=== PATIENT | female | born 1980 | race Caucasian/White ===

== ENCOUNTER → 2020-10-20 08:24 | Outpatient (CLI) | payer BC, SELFPAY ==
[2020-10-20 12:44] LABS: Coronavirus 19 IgG Antibody Negative (Negative); Coronavirus 19 IgM Antibody Negative (Negative)
== END ==
PROVIDERS: Visit Provider Internal Medicine Gastroenterology
DX: Z01.818 Encounter for other preprocedural examination (principal); Z13.810 Encounter for screening for upper gastrointestinal disorder; R13.10 Dysphagia, unspecified
CPT/HCPCS: 36415; 86328

== ENCOUNTER 2020-10-22 07:24 | Day surgery (SDC) | payer BC, SELFPAY ==
[2020-10-16 13:09] VITALS: BMI 25.8
[2020-10-22] VITALS (7 sets, daily range): BP systolic 98–104; BP diastolic 60–71; PULSE 68–91; RESP 16–18; TEMP 36.4–36.8; O2SAT 96–100
--- NOTE | 2020-10-22 08:32 | HMH.ANESCL ---
[facility] Anesthesia Checklist - Patient Identification Patient Identification: Arm Band - Structural Data Admitted From: Home Planned Operative Procedure/s: egd Consent for Planned Operative Procedure(s) Verified: Yes Verified Documents: Surgical Consent, History and Physical - NPO Status Verified Time NPO: 00:00 - Additional verifications Anesthesia Reactions: No Hx Blood Transfusions: No Blood Transfusion Reaction: No - Airway Assessment C-Spine Mobility Assessed: Yes (mp2) TMJ Mobility Assessed: Yes Dentition: Good Dentition - Neurological Assessment Level of Consciousness: Awake, Alert - Anesthesia Plan Anesthesia Risk discussed: Yes Anesthesia Plan: Verified ASA Class: II Anesthesia Type: MAC [facility] History I have reviewed the patient's past medical history: Yes Medical History: Reports:: Gastroesophageal Reflux Disease(GERD), Migraine Denies:: Cancer, Diabetes Mellitus Type 1, Diabetes Mellitus Type 2, Internal Pacemaker, Lung Disease, MRSA, Seizures *Have you ever received a pneumonia vaccine?: No *Have you received a flu vaccine this season?: Yes Other Medical History: Denies: Blood Transfusion Reaction Anesthesia experience/problems:: nac Other Surgeries: Yes: Colonoscopy, , Dilation and Curettage, Tubal Ligation. No: Pacemaker Amputation: No Fractures: Yes (LT FOOT) - *Social History Last grade of school completed: High school graduate Smoking Status: Never smoker Alcohol Intake: never Substance Use Type: denies use *Occupational Status:: employed Housing: house Household Members: spouse *Travel in the last 8 weeks: None Family Hx:: Cancer, Heart Attack
--- NOTE | 2020-10-22 08:41 | HMH.PROC ---
[facility] Procedure Note Procedure Note:: Upper Endoscopy Procedure Report: Esophagogastroduodenoscopy with cold biopsies and TTS balloon dilation Endoscopost: Nabeel Scruggs II, MD Referring Physician: Millie Arreloa DO Date of Procedure: October 22, 2020 Equipment: Olympus GIF 180 standard upper endoscope Sedation: MAC sedation Indications: Mrs. Ponce is a 40-year-old female with chronic and persistent dysphagia. She does have Sjogren's and dry mouth. The patient does report food hanging up for almost an hour. She has been diagnosed with cervical dystonia. She also had cricopharyngeal spasm identified at the time of her EGD by me in July 2018. The patient also had evidence of some scalloping of the duodenal folds/conniventes with biopsies showing increased intraepithelial lymphocytes and villous blunting consistent with celiac sprue. The patient has had ongoing heartburn and reflux which did not improve with omeprazole. She does have moderate belching. She has early satiety and nausea in the mornings. The patient does report some minor bloating. She has loose bowel movements to regular bowel movements. She did have a CT scan of the abdomen and pelvis in September 2019 because of some right-sided abdominal pain. This was post hysterectomy and there was only a small amount of expected inflammatory change postsurgical. Procedure: Prior to the procedure, a history and physical exam was performed, and patient's medications and allergies were reviewed. The risks, benefits and alternatives of the sedation and procedure were discussed with the patient. All questions were answered and informed consent was obtained. The patient was brought to the procedure room. Patient identification and proposed procedure were verified by the physician and the nurse. The patient was placed in a left lateral decubitus position and the scope was passed under direct vision. Throughout the procedure, the patient's blood pressure, pulse, and oxygen saturations were monitored continuously. The upper GI endoscopy was accomplished without difficulty. The patient tolerated the procedure well. Findings: The scope was passed directly into the upper esophagus and advanced to the third portion of the duodenum. The post bulbar duodenum and duodenal bulb were normal with normal mucosa and conniventes. There was no scalloping of the duodenal folds. The scope was withdrawn through a normal duodenal bulb and pylorus into the stomach. There was very mild linear reactive gastropathy of the antrum. The remainder of the antrum, body and fundus of the stomach were grossly normal. Upon retroflexion there was no hiatal hernia. 2 biopsies were taken in the antrum and along the lesser curvature for histology to rule out gastritis and/or H pylori. The scope was then withdrawn into the esophagus. There was a serrated Z-line consistent with nonerosive GERD. Cold biopsies were taken at the GE junction to rule out intestinal metaplasia. There were tertiary contractions and evidence of mild esophageal dysmotility. The entire esophagus was dilated to 60 [place]/20 mm with a TTS hydrostatic balloon. There was some resistance at the cricopharyngeus/cricopharyngeal spasm. The remainder of the esophageal mucosa was normal. Impression: 1. Cricopharyngeal spasm status post dilation to 20 mm 2. Nonerosive GERD with mild to moderate esophageal dysmotility 3. Minimal linear reactive gastropathy Plan: I do feel that the patient has functional GERD which is resulting in her symptoms of dysphagia and globus. This is related to gas pressure gradients. 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 I do feel that she would benefit from a promotility therapy (Reglan versus domperidone). We will discuss treatment options today. I will follow-up the biopsies. I would also like t
== END 2020-10-22 09:52 | disposition home or self-care (01) ==
LOC: OUTP 07:29
PROVIDERS: PCP Family Medicine; Visit Provider Internal Medicine Gastroenterology
PROC: 0DJ08ZZ Inspection of Upper Intestinal Tract, Via Natural or Artificial Opening Endoscopic (ICD-10-PCS; CPT 43235; principal; 2020-10-22 12:00)
DX: J39.2 Other diseases of pharynx (principal); K21.9 Gastro-esophageal reflux disease without esophagitis; K22.4 Dyskinesia of esophagus; K31.9 Disease of stomach and duodenum, unspecified; G43.909 Migraine, unspecified, not intractable, without status migrainosus; Z79.899 Other long term (current) drug therapy
CPT/HCPCS: 43239; 43249; C1726

== ENCOUNTER 2025-09-13 14:00 | Outpatient (RCR) | payer BC, SELFPAY | END 2025-09-13 23:59 | disposition home or self-care (01) | LOC: PT.CARL 14:00 | PROVIDERS: PCP Family Medicine; Visit Provider Nurse Practitioner | DX: G57.52 Tarsal tunnel syndrome, left lower limb (principal) | CPT/HCPCS: 97032; 97035; 97110; 97161 ==

== ENCOUNTER 2025-09-27 14:00 | Outpatient (RCR) | payer BC, SELFPAY | END 2025-09-27 23:59 | disposition home or self-care (01) | LOC: PT.CARL 14:00 | PROVIDERS: PCP Family Medicine; Visit Provider Nurse Practitioner | DX: G57.52 Tarsal tunnel syndrome, left lower limb (principal) | CPT/HCPCS: 97032; 97035; 97110; 97112 ==

== ENCOUNTER 2025-10-18 14:00 | Outpatient (RCR) | payer BC, SELFPAY | END 2025-10-18 23:59 | disposition home or self-care (01) | LOC: PT.CARL 14:00 | PROVIDERS: PCP Family Medicine; Visit Provider Nurse Practitioner | DX: G57.52 Tarsal tunnel syndrome, left lower limb (principal) | CPT/HCPCS: 97032; 97035; 97110 ==